=== PATIENT | male | born 1975 | race Caucasian/White ===

== ENCOUNTER 2023-05-03 22:51 | Emergency (ER) | payer MEDICARE, MEDICAID ==
[~2023-05-03 22:51] MED LIST: Codeine/Promethazine 10-6.25 MG/5 ML Syrup 5 ML UD Cup PO ONE
[2023-05-03 23:52] LABS: CORONAVIRUS COVID-19 NAA NEGATIVE (NEGATIVE); INFLUENZA A NAA NEGATIVE (NEGATIVE); INFLUENZA B NAA NEGATIVE (NEGATIVE); RESPIRATORY SYNCYTIAL VIR NAA NEGATIVE (NEGATIVE)
[2023-05-04] MEDS ORDERED: Codeine/Promethazine 10-6.25 MG/5 ML Syrup 5 ML UD Cup ONE ×2 (00:05→00:07)
== END 2023-05-04 00:10 | disposition home or self-care (01) ==
LOC: LL.ED 22:51
DX: J40 Bronchitis, not specified as acute or chronic (principal); I10 Essential (primary) hypertension; E11.9 Type 2 diabetes mellitus without complications; Z88.8 Allergy status to other drugs, medicaments and biological substances
CPT/HCPCS: 0241U; 71046; 99285; A9270-GY